=== PATIENT | female | born 1985 | race Caucasian/White ===

== ENCOUNTER 2019-02-21 19:13 | Emergency (ER) | payer OTHER ==
[~2019-02-21] VITALS: Ht 152.4 cm; Wt 70.5 kg
[2019-02-21] MEDS ORDERED: GI COCKTAIL 50ML BTL(HYOSCYAMINE/MAALOX/LIDOCAINE VISCOUS)(1:3:1) PO ONE (20:00)
[2019-02-21 20:40] LABS: BASO % 0.4 % (0.0-1.0); EOS # 0.1 10^3/uL (0.0-0.50); EOS % 0.5 % (0.0-3.0); HEMATOCRIT 42.7 % (36.0-47.0); HEMOGLOBIN 14.7 g/dl (12.0-15.5); LYMPH # 1.1 10^3/uL (1.5-4.5); MEAN CORPUSCULAR HGB CONC 34.4 g/dl (32.0-36.5); MEAN CORPUSCULAR VOLUME 90.1 fl (80.0-96.0); MONO # 0.9 10^3/uL (0.0-0.8); MONO % 9.2 % (0.0-5.0); NEUTROPHILS # 7.6 10^3/uL (1.8-7.7); NEUTROPHILS % 78.7 % (36.0-66.0); PLATELET COUNT, AUTOMATED 246 10^3/uL (150-450); RED BLOOD COUNT 4.74 10^6/uL (4.00-5.40); WHITE BLOOD COUNT 9.6 10^3/uL (4.0-10.0)
[2019-02-21 20:45] LABS: HCG, SERUM QUALITATIVE NEGATIVE (NEGATIVE)
[2019-02-21 20:49] LABS: INR 1.01; PARTIAL THROMBOPLASTIN TIME 26.6 SECONDS (25.4-37.6); PROTHROMBIN TIME 13.4 SECONDS (12.1-14.4)
[2019-02-21 20:52] LABS: D-DIMER QUANT 454.27 ng/ml (<500)
[2019-02-21 20:59] LABS: BLOOD UREA NITROGEN 13 MG/DL (7-18); CARBON DIOXIDE LEVEL 24 MEQ/L (21-32); CHLORIDE LEVEL 111 MEQ/L (98-107); CK-MB VALUE MASS < 1.0 NG/ML (<3.6); CPK CREATINE PHOSPHOKINASE 67 U/L (26-192); CREATININE FOR GFR 0.76 MG/DL (0.55-1.30); GLOMERULAR FILTRATION RATE > 60.0 (>60); GLUCOSE, FASTING 86 MG/DL (70-100); LIPASE 106 U/L (73-393); MB/CK RELATIVE INDEX 1.49 (< OR =4); POTASSIUM SERUM 3.9 MEQ/L (3.5-5.1); SODIUM LEVEL 143 MEQ/L (136-145); THYROID STIMULATING HORMONE 0.546 uIU/ML (0.358-3.740); TROPONIN I < 0.02 NG/ML (< 0.10)
[2019-02-21] MEDS ORDERED: PRIL20TA2 PO (21:38)
[2019-02-21] MEDS ORDERED: SUCR1TA PO (21:38)
[2019-02-21] MEDS ORDERED: SUCRALFATE SUSP 1GM/10ML UD PO ONE (21:45)
[2019-02-21] MEDS ORDERED: OMEPRAZOLE 20 MG CAP PO ONE (21:45)
[2019-02-21 22:00] VITALS: BP 125/77
--- NOTE | 2019-02-22 02:09 | REP ---
Clinical: Chest pain . Comparison: None . Technique: PA and lateral. Findings: The mediastinum and cardiac silhouette are normal. The lung gavin are clear and without acute consolidation, effusion, or pneumothorax. The skeletal structures are intact and normal. Impression: 1. No acute cardiopulmonary process. Electronically Signed by Sj Mace MD 02/22/2019 02:01 A
--- NOTE | 2019-02-22 05:40 | ECGEPIP ---
Stationary ECG Study [facility] - ED Test Date: 2019-02-21 Pat Name: TOVA BETANCOURT Department: Room: - Gender: F Oil Painter: LUCERO : 1985 Requested By: HENRRY BOCANEGRA PA-C Order Number: [id number] Reading MD: Hood Godinez Measurements Intervals [place] Rate: 84 P: 59 NC: 151 QRS: 54 QRSD: 100 T: 50 QT: 363 QTc: 431 Interpretive Statements SINUS RHYTHM WITH MARKED SINUS ARRHYTHMIA INCOMPLETE RIGHT BUNDLE BRANCH BLOCK NO PRIORS FOR COMPARISON Electronically Signed On 02-22-2019 5:40:23 EDT by Hood Godinez
== END 2019-02-21 22:05 | disposition home or self-care (01) ==
LOC: M ED 19:13
DX: K21.0 Gastro-esophageal reflux disease with esophagitis (principal); Z79.899 Other long term (current) drug therapy

== ENCOUNTER → 2019-02-21 | Outpatient (REF) | payer OTHER ==
[~2019-02-21] MED LIST: PRIL20TA2 PO; SUCR1TA PO
== END ==
LOC: M SFHCLERA 18:53
PROVIDERS: ATTEND Physician Assistant
DX: J02.9 Acute pharyngitis, unspecified (principal)